=== PATIENT | female | born 1950 | race Caucasian/White ===

== ENCOUNTER 2019-10-20 20:04 | Emergency (ER) | payer MEDICARE, SELFPAY ==
[2019-07-03 13:36] VITALS: BMI 29.8
[2019-10-20 20:05] VITALS: BP 130/84; PULSE 77; RESP 15; TEMP 36.4; O2SAT 95; BMI 28.0
--- NOTE | 2019-10-20 20:18 | CT_ITS ---
STUDY: CT BRAIN WITHOUT CONTRAST REASON FOR EXAM: Female, 69 years old. PT STATED DAUGHTER NOTICED SLURRED SPEECH WHEN SHE WAS WOKE FROM A NAP FOR 10MIN TODAY RADIATION DOSAGE (If Supplied By Facility): CTDIvol = ( 44.99 ) mGy, DLP = ( 779.24 ) mGycm TECHNIQUE: Transaxial CT imaging of the brain was performed without administration of intravenous contrast material. Individualized dose optimization techniques were used for this CT. COMPARISON: No relevant priors. FINDINGS: Normal soft tissue structures. Normal calvarium. There is mild cerebral atrophy with widening of the extra-axial spaces and ventricular dilatation. There are areas of decreased attenuation within the white matter tracts of the supratentorial brain, consistent with microvascular disease changes. Normal basal ganglia and thalami. Normal brainstem. There is mild cerebellar atrophy. There is no intracranial hemorrhage. There are no findings of an acute ischemic infarction. Normal visualized paranasal sinuses. CT/Brain/Head without Contrast IMPRESSION: Chronic involutional changes of the brain. Electronically Signed: Kaleb Falcon DO at 21:21 EST Tel , Service support ,
[2019-10-20 20:21] VITALS: BMI 29.3
[2019-10-20 20:31] LABS: Absolute Lymphocyte Count 1.84 X10^3/uL (0.83-4.51); Absolute Neutrophil Count 3.7 X10^3/uL (2.0-7.7); Basophil# 0.04 X10^3/uL; Basophil% 0.7 % (0-1); Eosinophil# 0.16 X10^3/uL; Eosinophils% 2.6 % (0-5); Hemoglobin 14.1 g/dL (12.0-15.0); Lymphocyte # 1.84 X10^3/ul (4.0); Lymphocyte % 30.1 % (19-41); Mean Corpuscular Hgb 28.8 pg (27.0-32.0); Mean Platelet Vol. 8.8 fl (6.2-12.0); Monocyte# 0.33 X10^3/uL; Monocyte% 5.4 % (0-10); NRBC Flagged by Analyzer 0 % (0-5); Neutrophil # 3.74 X10^3/uL (2.7-7.7); Platelet Count 251 K/mm3 (150-450); RBC Distribution Width SD 42.5 fl (35.1-43.9); Red Blood Count 4.89 M/mm3 (4.2-5.4); White Blood Count 6.1 K/mm3 (4.4-11.0)
[2019-10-20 20:36] LABS: Bedside Glucose 118 mg/dL (70-110)
[2019-10-20 20:43] LABS: Anion Gap 6 (5-15); BUN 16 mg/dL (7-18); BUN/Creat Ratio 21.9 RATIO (10-20); Calcium,Total 9.4 mg/dL (8.5-10.1); Chloride 108 mmol/L (98-107); Creatinine, Serum 0.73 mg/dL (0.55-1.02); EST Glomerular Filtration Rate 84 mL/min (>60); Est Glom Filt Rate - Afr Amer 101 mL/min (>60); Estimated Creatinine Clearance 44.56 ml/min; Glucose 114 mg/dL (74-106); Sodium Level 141 mmol/L (136-145)
--- NOTE | 2019-10-20 21:31 | ED.VISSUMM ---
- ER Visit Summary Date of Service: 10/20/19 Chief Complaint: Speech difficulty History of Present Illness: The patient is a 69 F who presents with speech difficulty. The daughter was talking to her on the phone and thought that her speech was slurred. This lasted about 10 minutes. The patient states she woke up from a nap and was a little bit confused and that is why she was talking like that. No chest pain, shortness of breath, leg weakness, arm weakness. She did have a mild headache. She may have had a TIA in the past but she is not sure. She is on no blood thinning medications. Physical Examination: Vital signs reviewed. HEENT exam unremarkable. Heart is regular rate and rhythm without murmurs. Lungs are clear to auscultation. Abdomen is soft and nontender. Extremities reveal no edema. Skin exam normal. Neurologic exam normal. NIH is 0 Test Results: CAT scan reveals no issues. Blood work normal Emergency Department Course and Treatment: The patient has an NIH is 0. No stroke team was called with his symptoms had resolved. This may have been a TIA. With her risk factors, age and medical history her ABCD 2 score is 2. This is low risk. The patient wishes to follow-up as an outpatient. She does not want to be admitted to the hospital. I feel that this is reasonable. Patient will be discharged to follow-up with her doctor. Treatment Plan: [] Disposition: Discharge Impression: Speech difficulty, resolved This note was generated with [employer] dictation software. It may contain incorrect words, spelling, and punctuation that were not noted in review of the chart prior to signing ED Disposition - Plan for ED Patient: Disposition: Home or Assisted Living Instructions: T.I.A.: Transient Ischemic Attack Referrals: Kirby Snyder MD [Primary Care Provider] -
[2019-10-20 21:43] VITALS: BP 141/85; PULSE 70; RESP 15; O2SAT 97
== END 2019-10-20 21:43 | disposition home or self-care (01) ==
PROVIDERS: Emergency Provider Emergency Medicine; Family Provider Family Medicine; PCP Family Medicine
DX: F80.9 Developmental disorder of speech and language, unspecified (principal); R51 Headache; E03.9 Hypothyroidism, unspecified; Z86.73 Personal history of transient ischemic attack (TIA), and cerebral infarction without residual deficits; R41.0 Disorientation, unspecified; Z72.0 Tobacco use; Z79.899 Other long term (current) drug therapy
CPT/HCPCS: 70450; 80048; 82962; 85025; 99283; A4216